=== PATIENT | female | born 1950 | race Caucasian/White ===

== ENCOUNTER 2025-02-26 21:26 | Emergency (ER) | payer MEDICARE, SELFPAY ==
--- OUTSIDE RECORDS SUMMARY | 2025-02-26 21:29 | XMS_ITS | Encounter Summary ---
Author Organization Address [address] [place] [address] Care Team Providers Care Director Of Nuclear Medicine Name Role Phone Ashley Foote MD Primary Care Provider [phone] Reason for Visit * Reason Comments Provider Call Encounter Details Date Type Department Care Team (Late st Contact Info) Description 12/13/2024 Telephone [facility] [address] [facility] [place] [address] Ashley Foote MD [address] [place] [address] Provider Call Social History Tobacco Use Types Packs/Day Years Used Date Smoking Tobacco: Never Smokeless Tobacco: Never Alcohol Use Standard Drinks/Week Comments Never 0 (1 standard drink = 0.6 oz pur e alcohol) Social Connections Answer Date Recorded In a typical week, how many times do you talk on the phone with family, friends, or neighbors? Three times a week 04/18/2020 How often do you get togethe r with friends or relatives? Twice a week 04/18/2020 How often do you attend chur ch or holiness services? Patient declined 04/18/2020 Do you belong to any clubs o r organizations such as presybeterian groups, unions, fraternal or athletic groups, or school groups? Yes 04/18/2020 Attends Club or Organization Meetings Not on lance e 04/18/2020 Marital Status Not on file 04/18/2020 Financial Resource Strain Answer Date R ecorded How hard is it for you to pa y for the very basics like food, housing, medical care, and heating? Not hard at all 04/18/2020 Food Insecurity Answer Date Recorded Within the past 12 months, y ou worried that your food would run out before you got the money to buy more. Never true 04/18/20 20 Within the past 12 months, t he food you bought just didn't last and you didn't have money to get more. Never true 04/18/2020 Transportation Needs Answer Date Record ed In the past 12 months, has l ack of transportation kept you from medical appointments or from getting medications? No 03/29 In the past 12 months, has l ack of transportation kept you from meetings, work, or from getting things needed for daily living? 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 Topic: [id number]-Caqvlipj Call >> Dec 13, 2024 2:32 PM Sarina Cornejo wrote: Caller is requesting to speak with Clinical Care Team. Caller Name: [facility] Callback Number: [phone] Clinician Type: Other healthcare professional not listed above Call Notes: [facility] [employer]. Calling in regards to unable to get in contactwith patient. Asking for us to reach out to patient and find out if she needs new machine or keep current machine on script. Is this addressing an immediate patient care need? No documented in this encounter Plan of Treatment Upcoming Encounters Date Type Department Care Team (Late st Contact Info) Description 04/05/2025 1:00 PM CDT Office Visit [facility] [address] [place] [address] Ashley Foote MD [address] [place] [address] documented as of this encounter Visit Diagnoses Not on filedocumented in this encounter Additional Health Concerns Assessment Noted Time PHQ-9 Depression Total Score: 2 12/08/19 25 11:00 AM CDT documented as of this encounter Care Teams Director Of Nuclear Medicine Relationship Specialty Start Date End Date Ashley Foote MD [address] [place] [address] PCP - General Family Practice 07/04/24 documented as of this encounter
--- OUTSIDE RECORDS SUMMARY | 2025-02-26 21:29 | XMS_ITS | Clinical Summary ---
Author Organization [facility] Address [address] [place] [address] Care Team Providers Care Biology Internship Name Role Phone Ashley Foote MD Primary Care Provider [phone] Allergies No known active allergies Medications CALCIUM CARBONATE (CALCIUM 500 ORAL) Take 500 mg by mouth 2 times daily. Active cpap medical affairs specialist Active cpap medical deviceIndications: Primary central sleep apnea CPAP . Length of need:99 mo; full face mask with headgear q 6 mo; mask only q 3 mo; Tubing heated, water chamber 1 per 3 months, chin strap 1 per 6 months, filters disposable 2 per month, filters reusable 1 per 6 months.. 1 Each 08/31/19 18 Active fluticasone-umecli dinium-vilanterol (TRELEGY ELLIPTA) 100-62.5-25 mcg Disk with DeviceIndications: Asthma-COPD overlap syndrome (CMS/HCC) Take 1 Puff by inhalation daily. 60 Each 11 07/04/19 25 Active albuterol sulfate HFA 90 mcg/actuation aerosol inhalerIndications :Moderate persistent asthma without complication Take 2 Puffs by inhalation every 6 hours as needed for Shortness of Breath. proair hfa ok 54 Gram 3 07/04/19 25 Active nitroglycerin (NITROSTAT) 0.4 mg Tablet, SublingualIndicati ons:Atherosclerosi s of [place] coronary artery of [place] heart with stable angina pectoris Place 1 Tablet (0.4 mg) under tongue every 5 minutes as needed for Chest Pain. 10 Tablet 07/04/19 25 Active pramipexole (MIRAPEX) 0.5 mg tabletIndications: RLS (restless legs syndrome) Take 1 Tablet (0.5 mg) by mouth daily at bedtime. TAKE 1 TABLET BY MOUTH DAILY AT BEDTIME 100 Tablet 3 07/04/19 25 Active naproxen (NAPROSYN) 500 mg tablet Take 1 Tablet (500 mg) by mouth 2 times daily with meals. 200 Tablet 3 07/04/19 25 Active citalopram (CeleXA) 20 mg tabletIndications: Moderate major depression (CMS/HCC) Take 1 Tablet (20 mg) by mouth daily at bedtime. 100 Tablet 3 07/04/19 25 Active atorvastatin (LIPITOR) 80 mg tabletIndications: Mixed hyperlipidemia Take 1 Tablet (80 mg) by mouth daily. 100 Tablet 3 07/13/19 25 Active metoprolol tartrate (LOPRESSOR) 50 mg tabletIndications: Benign hypertension Take 1 Tablet (50 mg) by mouth 2 times daily. 200 Tablet 3 09/16/19 25 Active lisinopriL (PRINIVIL) 40 mg tabletIndications: Benign hypertension Take 1 Tablet (40 mg) by mouth daily. 100 Tablet 3 09/16/19 25 Active EPINEPHrine (EPIPEN) 0.3 mg/0.3 mL Auto-InjectorIndic ations:Food allergy Inject 0.3 mL (0.3 mg) by intramuscular injection 1 time daily as needed for Anaphylaxis. 2 Each 11/29/19 25 Active CPAP / BIPAP suppliesIndication s:DEAN on CPAP Length of need: 99 months Mask Type: full face with headgear every 6 months, mask only every 3 months,2 cushions per month. Tubing: heated 1 every 3 months, water chamber 1 every 6 months, chin strap 1 every 6 months, filters disposable 2 per month, filters reusable 1 per 6 months. 1 Each 11/29/19 25 Active HYDROcodone-acetam inophen (NORCO) 5-325 mg tabletIndications: Tooth abscess Take 1 Tablet by mouth every 4 hours as needed for Pain, Moderate. Max Daily Amount: 6 Tablets 20 Tablet 11/29/19 25 Active linaCLOtide (LINZESS) 290 mcg capsuleIndications :Irritable bowel syndrome with constipation Take 1 Capsule (290 mcg) by mouth daily before breakfast. 30 Capsule 11 12/08/19 25 Active benzonatate (TESSALON) 200 mg capsule Take 1 Capsule (200 mg) by mouth 3 times daily. 30 Capsule 12/08/19 25 Active Active Problems Patient Care Coordination No te Formatting of this note migh t be different from the original. GAS APPLIANCE INSTALLER DR TRACEY ZARATE MD, [facility], [facility] Problem Noted Date Diagnosed Date Moderate major depression 07/04/2024 Moderate persistent asthma without complication 07/04/2024 Benign hypertension 07/04/2024 Irritable bowel syndrome with constipation 05/09 Obesity (BMI 30.0-34.9) 04/18/2020 Primary osteoarthritis involving multiple joints 04/18/2020 Atherosclerosis of coronary artery of [place] heart with stable angina pectoris 04/25/2019 History of placement of stent in LAD coronary ar wilmer 04/25/2019 RLS (restless legs syndrome) 02/09/2019 Asthma-COPD overlap syndrome 02/09/2019 Mild episode of recurrent major depressive disor beatriz 02/09/2019 Mixed hyperlipidemia 06/30/2017 DEAN on CPAP 02/25/2017 Resolved Problems Problem Noted Date Diagnosed Date Resolved Date COPD 06/30/2017 06/30/2017 Essential hypertension 06/30/201707/04 Encounters Date Type Department Care Team Description 01/10/2025 External Device Data STL ABSTRACTION Provider, Abstract 01/09/2025 External Device Data STL ABSTRACTION Provider, Abstract 12/13/2024 Telephone [facility] [address] [place] [address] Ashley Foote MD Provider Call 12/07/2024 11:30 AM CDT Office Visit [address] [place] [address] Ashley Foote MD Viral upper respiratory infection (Primary Dx); Screening mammogram, encounter for; Irritable bowel syndrome with constipation 12/06/[address] [place] [address] Ashley Foote MD Clinical Consult Before Scheduling; Sinus Problem 12/04/[address] [place] [address] Ashley Foote MD Medication Review 11/29/[address] [place] [address] Ashley Foote MD 11/28/2024 10:30 AM CDT Office Visit [address] [place] [address] Ashley Foote MD Tooth abscess (Primary Dx); Screening mammogram, encounter for; Food allergy; DEAN on CPAP; Other constipation; Asthma-COPD overlap syndrome 11/28/[address] [address] Tab Dejesus PCA [facility] Account Development Representative; Medication Refill; Patient Communication 11/27/[address] [place] [address] Ashley Foote MD Clinical Consult Before Scheduling; Patient Communication from Last 3 Months Immunizations Immunization Administration Dates Next Due (PREVNAR 13)(6 WKS UP) PNEUM OCOCCAL CONJUGATE (PCV13) 0.5 ML, IM 02/25/2017 INFLUENZA VACCINE HIGH DOSE QUADRIVALENT 65 YR UP PF IM 04/14/2024,06/26/2023,04/07/2022,2019,07/12/2019 Influenza Seasonal Unspecifi ed Formulation IM 04/28/2024,07/03/2021,03/17/2017,2010 Family History Medical History Relation Name Comments Down's Syndrome Brother 1 Seizures Brother 2 Heart Disease Father Cancer Mother No Known Problems Sister Relation Name Status Comments Brother 1 Brother 2 Alive Father Mother Sister Alive Social History Tobacco Use Types Packs/Day Years [...] 04/18/2020 How often do you attend chur or moravian services? 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 [employer] Gender Identity Not on file Sexual Orientation Not on file Last Filed Vital Signs Vital Sign Reading Time Taken Comments Blood Pressure 140/80 12/07/2024 11:35 AM CDT Pulse 54 12/07/2024 11:35 AM CDT Temperature 36.4 C (97.5 F) 12/07/2024 11:35 AM CDT Respiratory Rate 18 12/07/2024 11:35 AM CDT Oxygen Saturation 98% 12/07/2024 11:35 AM CDT Inhaled Oxygen Concentration - - Weight 77.6 kg (171 lb) 12/07/2024 11:35 AM CDT Height 152.4 cm (5') 12/07/2024 11:35 AM CDT Body Mass Index 33.4 12/07/2024 11:35 AM CDT Plan of Treatment Upcoming Encounters Date Type Department Care Team (Late st Contact Info) Description 04/05/2025 1:00 PM CDT Office Visit [facility] [place] [facility] [place] [phone] Ashley Foote MD [address] [facility] [place] [address] Health Maintenance Due Date Last Done Comments DTAP/TDAP/TD VACCINES (1 - Tdap) 12/11/1970 FIT-DNA Q 3 years 12/11/1996 FIT/FOBT Q 1 year 12/11/1996 Flex Sig/CT Colonography Q 5 years 12/11/1996 ZOSTER VACCINE (1 of 2) 12/11/2001 RSV VACCINE (60+ or ) (1 - Risk 60-74 years 1-dose series) 2011 OSTEOPOROSIS SCREENING 12/11/2016 PNEUMOCOCCAL VACCINE 50+ YEA RS (2 of 2 - PPSV23, PCV20, or PCV21) 04/22/2017 02/25/2017 BREAST CANCER SCREENING 11/03/2017 11/03/2016 COLORECTAL SCREENING 03/26/2022 03/26/2017, 03/26/2017, 03/26/2017 Colorectal Cancer Screening 03/26/2022 Medicare [place] ([place]) Preventative Visit/Annual Wellness Visit 06/28/2024 02/25/2017, 02/25/2017 INFLUENZA VACCINE (#1) 2025 , 04/14/2024, 06/26/2023, Additional history exists Procedures Procedure Name Priority Date/Time Associated Diagnosis Comments ENDOSCOPY, COLON, SCREENING 03/26/2017 12:00 AM CDT MAMMO SCREEN BILAT W OR WO CAD Routine 11/03/2016 11:02 AM CDT Encounter for screening mammogram for malignant neoplasm of breast from Last 3 Months or Most Recently Relevant to Health Maintenance Results * ENDOSCOPY, COLON, SCREENING (03/26/2017 12:00 AM CDT) us Sgf Scanning GI PROCEDURE ORDERABLES Final Re sult * MAMMO SCREEN BILAT W OR WO CAD (11/03/2016 11:02 AM CDT) Anatomical Region Laterality Modality Breast Bilateral Mammography 11/03/2016 11:0 2 AM CDT Impressions 11/10/2016 9:30 AM CDT IMPRESSION: No mammographic evidence of malignancy or interval change. If a palpable abnormality is present, a benign mammogram should not preclude further diagnostic evaluation. RECOMMENDATION: Routine yearly screening mammogram guidelines. BI-RADS CATEGORY 2: BENIGN FINDINGS The appropriate information was entered into the [email or web address] reminder system with a target due date for the next mammogram set. Narrative 11/10/2016 9:30 AM CDT DIGITAL BILATERAL SCREENING MAMMOGRAM WITH CAD CLINICAL HISTORY: Screening mammogram. TECHNIQUE: Bilateral full field digital mammography was performed in CC and MLO projections. FINDINGS: The study is compared to the prior exam of 10/08/2010 and 09/26/2010. Heterogeneously dense fibroglandular tissue is seen in both breasts in an unchanged pattern. No new dominant mass, tumor microcalcification, or new areas of architectural distortion are seen. Benign fibronodular densities are stable. Images analyzed by CAD Procedure Note Sabas Gonzales MD - 11/10/2016 DIGITAL BILATERAL SCREENING MAMMOGRAM WITH CAD CLINICAL HISTORY: Screening mammogram. TECHNIQUE: Bilateral full field digital mammography was performed in CC and MLO projections. FINDINGS: The study is compared to the prior exam of 10/08/2010 and 09/26/2010. Heterogeneously dense fibroglandular tissue is seen in both breasts in an unchanged pattern. No new dominant mass, tumor microcalcification, or new areas of architectural distortion are seen. Benign fibronodular densities are stable. Images analyzed by CAD IMPRESSION IMPRESSION: No mammographic evidence of malignancy or interval change. If a palpable abnormality is present, a benign mammogram should not preclude further diagnostic evaluation. RECOMMENDATION: Routine yearly screening mammogram guidelines. BI-RADS CATEGORY 2: BENIGN FINDINGS The appropriate information was entered into the [email or web address] reminder system with a target due date for the next mammogram set. Pennie Tirado NP MAMMO ORDERABLES Final Res ult from Last 3 Months or Most Recently Relevant to Health Maintenance Insurance [facility] [id number] Advance Directives For more information, please contact: [phone] * Full Code (Latest Code Status on File) Date Activated Date Inactivated Comments 03/26/2017 12:18 PM 03/26/2017 5:26 PM * Full Code Date Activated Date Inactivated Comments 03/26/2017 11:25 AM 03/26/2017 12:18 PM Care Teams Biology Internship Relationship Specialty Start Date End Date Ashley Foote MD [address] [place] [address] [place] [phone] PCP - General Family Practice 07/04/24
--- NOTE | 2025-02-26 21:42 | ECG_ITS ---
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 Measurements Intervals [place] Rate: 57 P: 46 TX: 150 QRS: 1 QRSD: 90 T: 21 QT: 410 QTc: 401 Interpretive Statements SINUS BRADYCARDIA No previous ECG available for comparison Electronically Signed On 02-27-2025 21:41:56 CDT by Steven Welch M.D. [email or web address]
[2025-02-26 21:43] VITALS: BP 224/87; PULSE 58; RESP 18; TEMP 36.7; O2SAT 96; BMI 33.5
--- NOTE | 2025-02-26 21:55 | XRR_ITS ---
PROCEDURE INFORMATION: Exam: XR Chest Exam date and time: 02/27/2025 12:19 AM Age: 74 years old Clinical indication: Pain; Chest pressure; Prior surgery; Surgery date: 6+ months; Surgery type: Coronary stent; Additional info: Elevated blood pressure//chest discomfort TECHNIQUE: Imaging protocol: Radiologic exam of the chest. Views: 1 view. COMPARISON: No relevant prior studies available. FINDINGS: Lungs: No confluent consolidation. Minimal basilar airspace opacities favor atelectasis. Airspace disease is not completely excluded. Pleural spaces: No pleural effusion. No pneumothorax is seen. Heart/Mediastinum: The heart is normal in size. Vasculature: Atherosclerotic changes of the aorta are noted. Bones/joints: No lytic or blastic lesions. No acute osseous abnormality. Intraperitoneal space: No free air is seen under the diaphragm. XR/XR chest 1V portable [id number] IMPRESSION: Minimal patchy basilar airspace opacities, favoring atelectasis. Airspace disease is not completely excluded.
[2025-02-26 22:49] LABS: Hematocrit 42.1 % (36-47); Hemoglobin 14.10 g/dL (11.27-16.99); Mean Corpuscular HGB Conc 33.5 g/dL (30-55); Mean Corpuscular Hemoglobin 31.1 pg (27-33); Mean Corpuscular Volume 92.7 fl (85-98); Nucleated Red Blood Cells % 0 %; Platelet Count 256 10^3/cmm (157-399); Red Blood Count 4.54 10^6/uL (3.85-5.65); White Blood Count 8.54 10^3/uL (3.29-11.43)
[2025-02-26 23:00] VITALS: BP 192/84
[2025-02-26 23:09] LABS: Troponin(5th) Baseline < 6 ng/L (0-10)
[2025-02-26 23:11] LABS: Alanine Aminotransferase 37 U/L (0-33); Albumin Level 4.1 g/dL (3.5-5.2); Alkaline Phosphatase 85 U/L (35-105); Anion Gap 13.9 (5-19); Aspartate Amino Transferase 25 U/L (0-32); Blood Urea Nitrogen 11 mg/dL (8-23); Calcium 9.1 mg/dL (8.5-10.5); Carbon Dioxide 26 mmol/L (22-29); Chloride 100 mmol/L (98-107); Creatinine Clr Calc Pharmacy 57.8470; Globulin 2.5 g/dL (1.3-4.6); Glucose 122 mg/dL (65-115); Osmolality Calculated 283 mOsm/kg (285-295); Potassium 3.9 mmol/L (3.5-5.1); Sodium 136 mmol/L (136-145); Total Protein 6.6 g/dL (6.6-8.7)
--- NOTE | 2025-02-27 00:38 | W.ED.RECABL ---
HPI - Recheck/Abnormal Lab/Rx General: Chief Complaint: Recheck/Abnormal Lab/Rx Stated Complaint: High BP Time Seen by Provider: 02/26/25 22:52 History of Present Illness: 74-year-old female presents emergency room for blood pressure. States it has been elevated the last several weeks she is not changing her medications or not she is not using any [id number] medications. She will have slight chest pressure when he gets a very high as well as a little bit of a headache no vision problems at this time. She is on metoprolol as well as Lipitor. In addition to that she is on lisinopril. No difficulty with speech swallowing vision or gait. Related Data Home Medications ?Medication ?Instructions ?Recorded ?Confirmed albuterol sulfate 90 mcg/actuation 2 puff inhalation Q6H PRN 11/19/23 02/25/25 aerosol inhaler ascorbic acid (vitamin C) 1,000 mg 1 g PO Q6H 11/19/23 02/25/25 capsule aspirin 81 mg chewable tablet 81 mg PO DAILY 11/19/23 02/25/25 atorvastatin 80 mg tablet 80 mg PO DAILY 11/19/23 02/25/25 cholecalciferol (vitamin D3) 25 25 mcg PO DAILY 11/19/23 02/25/25 mcg (1,000 unit) capsule citalopram 20 mg tablet 20 mg PO DAILY 11/19/23 02/25/25 lisinopril 40 mg tablet 40 mg PO DAILY 11/19/23 02/25/25 metoprolol succinate 50 mg 50 mg PO DAILY 11/19/23 02/25/25 tablet,extended release 24 hr omeprazole 20 mg capsule,delayed 20 mg PO BID 11/19/23 02/25/25 release pramipexole 0.5 mg tablet 0.5 mg PO DAILY 11/19/23 02/25/25 tiotropium 2.5 mcg-olodaterol 2.5 2 puff inhalation DAILY 11/19/23 02/25/25 mcg/actuation mist for inhalation (Stiolto Respimat) fluticasone fur. 100 mcg-umeclid inhalation 02/25/25 02/25/25 62.5 mcg-vilant 25 mcg inhalat.powder (Trelegy Ellipta) Previous Rx's ?Medication ?Instructions ?Recorded amlodipine 5 mg tablet 5 mg PO DAILY #30 tabs 02/27/25 Allergies Allergy/AdvReac Type Severity Reaction Status Date / Time No Known Allergies Allergy Verified 02/25/25 10:10 Review of Systems Const: Denies: fever(s) or chills Card: Denies: chest pain Resp: Denies: dyspnea GI: Denies: abdominal pain : Denies: dysuria, urinary frequency or urinary urgency Musc: Denies: neck pain or back pain Skin/Breast: Denies: rash PFSH ED PFSH: Medical History Ear ache Throbbing sensation in head Social History Smoking and tobacco/nicotine status: never used tobacco/nicotine Physical Exam Const: GENERAL APPEARANCE: cooperative ORIENTATION/CONSCIOUSNESS: Yes awake, Yes oriented to person, Yes oriented to place and Yes oriented to time HENMT: COMMON NORMALS: normocephalic, atraumatic and hearing grossly normal bilaterally HEAD & SCALP: normocephalic and atraumatic Resp: COMMON NORMALS: normal respiratory effort, No retractions, No use of accessory muscles and clear to auscultation bilaterally AUSCULTATION: clear to auscultation bilaterally Cardio: COMMON NORMALS: regular rate, regular rhythm and No murmurs present (Cardio) RATE: regular rate RHYTHM: regular rhythm GI: COMMON NORMALS: Soft to palpation and No hepatosplenomegaly present AUSCULTATION: Yes normoactive bowel sounds PALPATION: Yes Soft to palpation, No Tenderness to palpation present (GI), No Guarding due to palpation present (GI) and Yes No hepatosplenomegaly present Extremity: COMMON NORMALS: normal to inspection, capillary refill normal, no clubbing, cyanosis or edema, no calf tenderness and no pedal edema Neuro: SENSORIUM/ORIENTATION: Yes oriented to person, Yes oriented to place and Yes oriented to time Skin: COMMON NORMALS: no rashes or lesions noted GENERAL SKIN EXAM: no rashes or lesions noted Course Vital Signs: Vital signs: Vital Signs Temperature 98.1 F 02/26/25 21:43 Pulse Rate 60 02/27/25 02:10 Respiratory Rate 12 02/27/25 01:00 Blood Pressure 124/72 02/27/25 02:10 Pulse Oximetry 98 02/27/25 02:10 Oxygen Delivery Me thod Room Air 02/27/25 00:54 MDM - Recheck/Abnormal Lab/Rx Medical Decision Making Blood pressure improved. Patient is feeling somewhat better Serial troponins negative. Patient has not had any chest pain. Discharge home started on amlodipine follow-up with primary care within the week. Return if has further problems. Medical Records I reviewed the patient's medical records. Lab Data I reviewed the patient's lab results. 02/26/25 22:42 02/26/25 22:42 Radiology Impressions Chest X-Ray 02/26/25 21:55 IMPRESSION: Minimal patchy basilar airspace opacities, favoring atelectasis. Airspace disease is not completely excluded. Laboratory Results WBC 8.54 10^3/uL (3.29-11.43) 02/26/25 22:42 RBC 4.54 10^6/uL (3.85-5.65) 02/26/25 22:42 Hgb 14.10 g/dL (11.27-16.99) 02/26/25 22:42 Hct 42.1 % (36-47) 02/26/25 22:42 MCV 92.7 fl (85-98) 02/26/25 22:42 MCH 31.1 pg (27-33) 02/26/25 22:42 MCHC 33.5 g/dL (30-55) 02/26/25 22:42 RDW 13.8 % (12.1-15.1) 02/26/25 22:42 Plt Count 256 10^3/cmm (157-399) 02/26/25 22:42 MPV 8.9 fL (7.4-10.4) 02/26/25 22:42 Neut % (Auto) 48.4 % 02/26/25 22:42 Lymph % (Auto) 39.1 % 02/26/25 22:42 [place] % (Auto) 7.1 % 02/26/25 22:42 Eos % (Auto) 4.2 % 02/26/25 22:42 Baso % (Auto) 0.8 % 02/26/25 22:42 Neut # (Auto) 4.13 10^3/uL (1.8-7.7) 02/26/25 22:42 Lymph # (Auto) 3.3 10^3/uL (0.8-4.8) 02/26/25 22:42 [place] # (Auto) 0.6 10^3/uL (0.2-0.9) 02/26/25 22:42 Eos # (Auto) 0.4 10^3/uL (0.0-0.8) 02/26/25 22:42 Baso # (Auto) 0.1 10^3/uL (0.0-0.1) 02/26/25 22:42 Nucleated RBC % (auto) 0 % 02/26/25 22:42 Nucleated RBCs # 0.0 /100WBC 02/26/25 22:42 Sodium 136 mmol/L (136-145) 02/26/25 22:42 Potassium 3.9 mmol/L (3.5-5.1) 02/26/25 22:42 Chloride 100 mmol/L (98-107) 02/26/25 22:42 Carbon Dioxide 26 mmol/L (22-29) 02/26/25 22:42 Anion Gap 13.9 (5-19) 02/26/25 22:42 BUN 11 mg/dL (8-23) 02/26/25 22:42 Creatinine 0.5 mg/dL (0.5-0.9) 02/26/25 22:42 GFR Calculation Not Reportable 02/26/25 22:42 Glucose 122 mg/dL (65-115) H 02/26/25 22:42 Calculated Osmolality 283 mOsm/kg (285-295) L 02/26/25 22:42 Calcium 9.1 mg/dL (8.5-10.5) 02/26/25 22:42 Total Bilirubin 1.4 mg/dL (0.15-1.2) H 02/26/25 22:42 AST 25 U/L (0-32) 02/26/25 22:42 ALT 37 U/L (0-33) H 02/26/25 22:42 Alkaline Phosphatase 85 U/L (35-105) 02/26/25 22:42 Troponin T Baseline < 6 ng/L (0-10) 02/26/25 22:42 Troponin T 120 Minute < 6.0 ng/L (0-10) 02/26/25 00:24 Delta Troponin T 0 ABS# (0-10) 02/26/25 00:24 Total Protein 6.6 g/dL (6.6-8.7) 02/26/25 22:42 Albumin 4.1 g/dL (3.5-5.2) 02/26/25 22:42 Globulin 2.5 g/dL (1.3-4.6) 02/26/25 22:42 All radiology interpretation(s) finalized by discharge EKG Data EKG 1: Interpretation: EKG 02/26/2025 2142 sinus bradycardia rate of 57 NM interval 150 QTc [address] changes noted no previous EKG for comparison Discharge Plan Discharge Patient Disposition: Home Clinical Impression: HTN (hypertension) Condition: Stable Prescriptions: New amlodipine 5 mg tablet 5 mg PO DAILY Qty: 30 0RF No Action aspirin 81 mg tablet,chewable 81 mg PO DAILY lisinopril 40 mg tablet 40 mg PO DAILY citalopram 20 mg tablet 20 mg PO DAILY metoprolol succinate 50 mg tablet extended release 24 hr 50 mg PO DAILY pramipexole 0.5 mg tablet 0.5 mg PO DAILY atorvastatin 80 mg tablet 80 mg PO DAILY omeprazole 20 mg capsule,delayed release(DR/EC) 20 mg PO BID albuterol sulfate 90 mcg/actuation HFA aerosol inhaler 2 puff inhalation Q6H PRN ascorbic acid (vitamin C) 1,000 mg capsule 1 g PO Q6H cholecalciferol (vitamin D3) 25 mcg (1,000 unit) capsule 25 mcg PO DAILY Stiolto Respimat 2.5-2.5 mcg/actuation mist 2 puff inhalation DAILY Trelegy Ellipta 100-62.5-25 mcg blister with device inhalation Discharge Orders: Discharge ED (Routine); Ordered 02/27/25 Ordered By: Shlomo Godfrey Referrals: Sherron Triana DO [Primary Care Provider, Family Practice] Discharge Diet: Usual diet Discharge Activity: Resume usual activity Patient Instructions: Opioid Safety, Pain Management, Patient Portal & Shola Instructions Activity Restrictions/Additional Instructions: Thank you for choosing [facility] for your healthcare needs today. It is very important that you follow up as instructed or that you return to the Emergency Department should you have concerns or if your condition changes or worsens in any way. Emergency department visits are focused on emergent conditions, in some cases you may require further evaluation on an outpatient basis. You were seen in the emergency room with complaints of elevated blood pressure. Your blood pressure improved with medications given recommend adding amlodipine 5 mg daily continue all of your other currently prescribed blood pressure medications and follow-up with your doctor within the next week. (Please note that included in your discharge packet is information concerning opioid safety and pain management. This information is given to all patients were discharged from the ER regardless of their discharge diagnosis or the medicines they usually take or are prescribed.) Print Language: Wolof Coding Level of Care Code ED Sports Book Server for Amy Ortiz
[2025-02-27] MEDS: hyDRALAzine 20 mg/mL INJ 1 mL IVP (00:50)
[2025-02-27 00:54] VITALS: BP 199/93; PULSE 58; RESP 16; O2SAT 96
[2025-02-27 00:54] LABS: Troponin 5 2HR < 6.0 ng/L (0-10)
[2025-02-27 01:00] VITALS: BP 152/72; PULSE 63; RESP 12; O2SAT 96
[2025-02-27 01:14] LABS: Troponin 5 2HR Delta 0 ABS# (0-10)
[2025-02-27 02:10] VITALS: BP 124/72; PULSE 60; O2SAT 98
== END 2025-02-27 02:11 | disposition home or self-care (01) ==
PROVIDERS: Emergency Provider Family Medicine; PCP Family Medicine
DX: I10 Essential (primary) hypertension (principal); Z79.82 Long term (current) use of aspirin
CPT/HCPCS: 36415; 71045; 80053; 84484; 85025; 93005; 96374; 99285; J0360; J9999

== ENCOUNTER → 2025-04-06 10:07 | Outpatient (BNVA) | payer MEDICARE, SELFPAY | PROVIDERS: PCP Family Medicine; Visit Provider Family Medicine | DX: I10 Essential (primary) hypertension (principal); E11.9 Type 2 diabetes mellitus without complications | CPT/HCPCS: 80053; 80061; 82043; 83036; 84443; 85025 ==

== ENCOUNTER → 2025-05-03 13:27 | Outpatient (BNVA) | payer MEDICARE, SELFPAY | PROVIDERS: PCP Family Medicine; Visit Provider Family Medicine | DX: I10 Essential (primary) hypertension (principal) | CPT/HCPCS: 80048 ==